=== PATIENT | female | born 1990 | race Caucasian/White ===

== ENCOUNTER 2022-05-12 02:28 | Day surgery (SDC) | payer OTHER, SELFPAY ==
[2022-05-05 08:35] VITALS: BMI 28.6
--- NOTE | 2022-05-05 08:39 | PC.NURSE ---
Report to the Outpatient Waiting Room, entrance under the green pavilion located off [facility], at time 7:45 on date 05/12/22. Planned Procedure Time: 9:45. Time changes happen often and if your time is changed the preop area will call you the afternoon before. - You and your visitor will be asked to self-screen and do not enter if you have any COVID symptoms. - Only one visitor is requested with a max of two and NO children visitors are allowed at this time. - The patient visitor may be requested to leave or wait in car when not with patient due to distancing restrictions. - A mask is optional within the hospital at this time. Patients may have clear liquids (water, carbonated beverages, clear teas, apple juice) until 3 hours prior to surgery (6:45) with a maximum of 20 ounces. - No food from midnight until time of surgery Take the following medications with a SIP of water the morning of surgery: N/A DO NOT STOP ANY OF YOUR OTHER PRESCRIPTION MEDICATIONS PRIOR TO SURGERY EXCEPT THE FOLLOWING Medications to discontinue per physician: N/A Date to take last dose: N/A Please no make-up, nail montenegrin, hairspray, perfume, deodorant, or body powder the day of surgery. No jewelry (including any body piercings) or valuables the day of surgery, leave them at home. Please take a shower or bath the night before, or the morning of, surgery with an antibacterial soap. Wear comfortable, loose fitting clothing. - Jewelry must be removed prior to entering the operating room. Rings and piercings that are not removed may be cut off. - The hospital will not accept responsibility for valuables. - Please leave all valuables, including medications, at home the day of surgery. If you are going home after surgery, a licensed medical driver must drive you home. - NO public transportation without another adult if you receive anesthesia. - We recommend that an adult stay with you for 24 hours following discharge. - We also recommend that you do not drive, make important decision, drink alcoholic beverages, or take any drugs that were not prescribed by your health care provider for at least 24 hours after your discharge time. Follow any additional instructions given to you from your surgeon. If you or anyone in your household have experienced Covid symptoms in the past week, please notify your surgeon or the nurse liaison at the phone number below for possible testing. Telephone instructions given to MARYLOU - BROOKLYNN HUNT and asked if any additional questions and then verbalized understanding. Patient advised to call surgeon office or pre surgery nurse liaison [phone] if any additional questions.
--- NOTE | 2022-05-11 16:10 | PM.IMHP ---
H&P: HPI History of Present Illness Date/Time: 05/11/22 16:10 Chief Complaint: heavy bleeding Narrative: so a 31-year-old female admitted for hysteroscopy dilatation curettage secondary to excessive heavy bleeding vaginally. She had bleeding for about 6 weeks has felt weak and uncomfortable. She had negative cultures and has an ultrasound that shows an endometrium that is heterogenous. Risks and benefits reviewed including not exclusive of , aspiration pneumonia, bleeding, transfusion, perforation injury to bowel, bladder, ureters, or other internal organs with need for open laparotomy. She received the ACOG handouts entitled hysteroscopy as well as dilatation curettage respectively. She had all questions answered. She asked to proceed [facility] Social History Social History Smoking status: Current every day smoker Tobacco type: e-cigarettes/vaping Alcohol intake: current Drinks per week: 2 Substance use: never Substance use type: does not use Living arrangements: with friend(s) Additional living arrangements comments: BOYFRIEND Spiritual care concerns: No Meds Home Medications and Allergies Home Medications Medication Instructions Recorded Confirmed Type levonorgestrel 120 mcg-e.estradiol 1 patch transdermal WEEKLY 05/05/22 05/05/22 History 30 mcg/24 hr weekly transderm patch (Twirla) Allergies Allergy/AdvReac Type Severity Reaction Status Date / Time No Known Allergies Allergy Unverified 05/05/22 08:34 Exam Const: General: cooperative, healthy appearing and comfortable Nutritional Appearance: average body habitus Orientation/consciousness: oriented to person, oriented to place and oriented to time HENMT: Head: normal to inspection Resp: Effort & Inspection: normal respiratory effort Cardio: Rate: regular rate Rhythm: regular rhythm Heart sounds: S1 normal heart sound present and S2 normal heart sound present GI: Inspection: normal to inspection Auscultation: normal bowel sounds : Speculum Exam - Vagina: normal appearance of the vagina and vaginal bleeding Speculum Exam - Cervix: normal appearance of the cervix Bimanual exam- vagina & uterus: enlarged Bimanual Exam- Adnexa, other: normal adnexae Assessment and Plan Assessment and plan (1) Excessive bleeding: Code(s): R58 - Hemorrhage, not elsewhere classified Status: Acute Plan hysteroscopy/dilatation curettage
--- NOTE | 2022-05-12 07:13 | WPDHPUPDATE1 ---
History and Physical Update Update Date/Time: 05/12/22 07:13 History and Physical has been reviewed, including an updated exam of the patient. There are NO changes in the patient's condition. Risks, benefits, and alternatives have been discussed and questions answered. Patient agrees to proceed with procedure.
--- NOTE | 2022-05-12 07:49 | WPDANESEPPF ---
Anes - Initial Pre Proc Eval Procedure: Operation Date: 05/12/22 09:45 Proposed Procedures p Hysteroscopy Dilation and Curettage - Sudhakar Rubi MD Date/Time: 05/12/22 07:49 Surgeon: Sudhakar Rubi MD Pre Op Diagnosis: Heavy bleeding Patient Data Age: 31 Gender: F Height: 1.7 m Weight: 83 kg Allergies Allergy/AdvReac Type Severity Reaction Status Date / Time No Known Allergies Allergy Unverified 05/12/22 08:25 Home Medications Medication Instructions Recorded Confirmed Type levonorgestrel 120 mcg-e.estradiol 1 patch transdermal WEEKLY 05/05/22 05/05/22 History 30 mcg/24 hr weekly transderm patch (Twirla) hydrocodone 5 mg-acetaminophen 325 1 tablet PO Q4H PRN pain #20 tabs 05/12/22 Rx mg tablet Patient hx anesthesia problems: none Family hx anesthesia problems: none Results Review: All pre-operative results and documents have been reviewed as part of the pre-operative evaluation. [facility] Past Medical History Medical History (Updated 05/12/22 @ 07:49 by Munir Kim DO) Anxiety Social History Social History Smoking status: Current every day smoker Tobacco type: e-cigarettes/vaping Alcohol intake: current Drinks per week: 2 Substance use: never Substance use type: does not use Living arrangements: with friend(s) Additional living arrangements comments: BOYFRIEND Spiritual care concerns: No Anes - Eval Final PreProcedure Day of Procedure 05/12/22 07:49 Patient weight: overweight Heart: regular rate and rhythm Lungs: clear to auscultation Airway: Mallampati scale class II Neurological: alert and oriented Last oral intake: >/= 8 hours ASA classification: II Emergent: no Anesthetic plan: proceed Anesthesia type and monitoring: general GIVS and standard monitoring Results Review: All pre-operative results and documents have been reviewed as part of the pre-operative evaluation. Informed Consent: The patient's anesthetic plan and its attendant risks and benefits were discussed with the patient/family/POA. Questions were solicited and answers provided to the satisfaction of the patient/family/POA.
[2022-05-12 08:08] VITALS: BP 123/74; PULSE 86; RESP 16; TEMP 36.8; O2SAT 100
[2022-05-12] MEDS: ACETAMINOPHEN 500 MG TABLET 1000 MG PO (08:27)
[2022-05-12] MEDS: LACTATED RINGERS 1,000 ML 30 ML IV CONT (08:35)
[2022-05-12] MEDS: LIDOCAINE HCL 1% LOCAL INJ 20 ML VIAL 10 ML INFILTRATE (09:18)
--- NOTE | 2022-05-12 09:29 | W.PM.PROC2 ---
Procedure Note - Detailed Date of Procedure 05/12/22 Pre-op Diagnosis Heavy bleeding Post-op Diagnosis Same Procedure Performed Hysteroscopy / dilatation curettage Surgeon Sudhakar Rubi MD Anesthesia MAC and Local Indications since 31-year-old female with excessive heavy bleeding refractory to medical therapy Findings uterus sounded to 8cm. Thick irregular endometrial tissue was seen Description of Procedure patient was prepped draped in normal sterile fashion placed in the dorsal lithotomy position. Under excellent IV sedation weighted speculum placed in posterior fornix vagina. Anterior lip of the cervix grasped with single-tooth tenaculum. 2.5cc 1% anesthesia placed at 2, 4, 8, 10:00 a.m. respectively the cervix. Uterus sounded 8cm. Serial dilatation with fragmented dilators performed followed by passage of the reviewed a hysteroscope. Normal saline was used as visualizing medium. Thick irregular endometrial tissue was seen but no evidence of abnormalities like polyps or lesions. The uterus was then scraped over 360? with the Aleksandra instrument. The instruments removed and accounted for blood loss estimated at5cc. All sponge, needle, instrument counts were correct. There were no immediate complications Estimated Blood Loss 5 Drains No Packing No Pathology Yes Complications No immediate complications Condition Stable Disposition PACU
[2022-05-12 09:32] VITALS: BP 110/66; PULSE 84; RESP 15; O2SAT 96
[2022-05-12] MEDS: oxyCODONE HCL (*CRX) 5 MG TAB IR PO (09:55)
[2022-05-12 10:00] VITALS: BP 105/68; PULSE 72; RESP 16; O2SAT 98
[2022-05-12 10:13] VITALS: BP 105/64; PULSE 77; RESP 16
== END 2022-05-12 10:21 | disposition home or self-care (01) ==
PROVIDERS: Visit Provider Obstetrics & Gynecology
PROC: 0U5B8ZZ Destruction of Endometrium, Via Natural or Artificial Opening Endoscopic (ICD-10-PCS; CPT 58563; principal; 2022-05-12 09:45)
DX: N93.9 Abnormal uterine and vaginal bleeding, unspecified (principal); F17.290 Nicotine dependence, other tobacco product, uncomplicated
CPT/HCPCS: 58558; 88305; A9270; J1100; J2250; J2405; J2704; J3010; J7120

== ENCOUNTER 2022-09-27 07:21 | Day surgery (SDC) | payer OTHER, SELFPAY ==
[2022-09-19 12:49] VITALS: BMI 29.3
[2022-09-19 13:07] VITALS: BMI 29.3
--- NOTE | 2022-09-26 06:27 | P.HP_ITS ---
History of Present Illness History of Present Illness Consent: Risks, benefits, and alternatives have been discussed and questions answered. Patient agrees to proceed with procedure. Chief complaint: Left Neck Mass Narrative: Ginna Aldana is a 32 year old female with a left neck mass Review of Systems Constitutional: Constitutional: Reports as per [facility] Past Medical History Medical History Anxiety Family History Family History Mother Throat cancer Tongue cancer Father Carcinoma of colon Factor V Leiden Hypertension Sibling Factor V Leiden Asthma Grandparent Depression Hypertension Factor V Leiden Social History Social History Smoking packs per day: 0.5 Smoking cigarettes per day: 10.0 Years smoked: 4 Smoking pack-years: 2.00 Smoking status: Current every day smoker Tobacco type: e-cigarettes/vaping Second hand tobacco smoke exposure: Yes Alcohol intake: current Drinks per week: 3 Substance use: never Substance use type: does not use Living arrangements: with family Additional living arrangements comments: BOYFRIEND Spiritual care concerns: No Meds Home Medications and Allergies Home Medications Medication Instructions Recorded Confirmed Type etonogestrel 68 mg subdermal 1 implant subdermal ONCE 09/05/22 09/19/22 History implant (Nexplanon) lisdexamfetamine 10 mg capsule 10 mg PO DAILY 09/05/22 09/19/22 History (Vyvanse) Allergies Allergy/AdvReac Type Severity Reaction Status Date / Time No Known Allergies Allergy Verified 09/19/22 12:48 Exam Narrative: left neck mass
--- NOTE | 2022-09-26 06:37 | PM.HPGS ---
History of Present Illness History of Present Illness Consent: Risks, benefits, and alternatives have been discussed and questions answered. Patient agrees to proceed with procedure. Chief complaint: Left Neck Mass Narrative: Ginna Aldana is a 32 year old female with the left neck mass Review of Systems Review of Systems: All systems reviewed & are unremarkable except as noted in HPI and below PMFSH Past Medical History Medical History Anxiety Family History Family History Mother Throat cancer Tongue cancer Father Carcinoma of colon Factor V Leiden Hypertension Sibling Factor V Leiden Asthma Grandparent Depression Hypertension Factor V Leiden Social History Social History Smoking packs per day: 0.5 Smoking cigarettes per day: 10.0 Years smoked: 4 Smoking pack-years: 2.00 Smoking status: Current every day smoker Tobacco type: e-cigarettes/vaping Second hand tobacco smoke exposure: Yes Alcohol intake: current Drinks per week: 3 Substance use: never Substance use type: does not use Living arrangements: with family Additional living arrangements comments: BOYFRIEND Spiritual care concerns: No Meds Home Medications and Allergies Home Medications Medication Instructions Recorded Confirmed Type etonogestrel 68 mg subdermal 1 implant subdermal ONCE 09/05/22 09/19/22 History implant (Nexplanon) lisdexamfetamine 10 mg capsule 10 mg PO DAILY 09/05/22 09/19/22 History (Vyvanse) Allergies Allergy/AdvReac Type Severity Reaction Status Date / Time No Known Allergies Allergy Verified 09/19/22 12:48 Exam Narrative: 11 12 mm solid mass
--- NOTE | 2022-09-26 10:37 | P.PNAN_ITS ---
Anes - Initial Pre Proc Eval Procedure: Operation Date: 09/27/22 09:00 Proposed Procedures p Excision Left Neck Mass - Alban Petersen MD Date/Time: 09/26/22 10:37 Surgeon: Alban Petersen MD Pre Op Diagnosis: Left Neck Mass Patient Data Age: 32 Gender: F Height: 1.7 m Weight: 85 kg Allergies Allergy/AdvReac Type Severity Reaction Status Date / Time No Known Allergies Allergy Verified 09/27/22 07:58 Home Medications Medication Instructions Recorded Confirmed Type etonogestrel 68 mg subdermal 1 implant subdermal ONCE 09/05/22 09/27/22 History implant (Nexplanon) lisdexamfetamine 10 mg capsule 10 mg PO DAILY 09/05/22 09/27/22 History (Vyvanse) Patient hx anesthesia problems: none Family hx anesthesia problems: none Results Review: All pre-operative results and documents have been reviewed as part of the pre- operative evaluation. [facility] Past Medical History Medical History Anxiety Family History Family History Mother Throat cancer Tongue cancer Father Carcinoma of colon Factor V Leiden Hypertension Sibling Factor V Leiden Asthma Grandparent Depression Hypertension Factor V Leiden Social History Social History Smoking packs per day: 0.5 Smoking cigarettes per day: 10.0 Years smoked: 4 Smoking pack-years: 2.00 Smoking status: Current every day smoker Tobacco type: e-cigarettes/vaping Second hand tobacco smoke exposure: Yes Alcohol intake: current Drinks per week: 3 Substance use: never Substance use type: does not use Living arrangements: with family Additional living arrangements comments: BOYFRIEND Spiritual care concerns: No Anes - Eval Final PreProcedure Day of Procedure 09/26/22 10:37 Patient weight: overweight Heart: regular rate and rhythm Lungs: clear to auscultation Airway: Mallampati scale class II Neurological: alert and oriented Last oral intake: >/= 8 hours ASA classification: II Emergent: no Anesthetic plan: proceed Anesthesia type and monitoring: general GIVS and standard monitoring Other findings: Patient attempted procedure under local, but asked for sedation intra op Results Review: All pre-operative results and documents have been reviewed as part of the pre- operative evaluation. Informed Consent: The patient's anesthetic plan and its attendant risks and benefits were discussed with the patient/family/POA. Questions were solicited and answers provided to the satisfaction of the patient/family/POA.
[2022-09-27 08:00] VITALS: BP 108/89; PULSE 79; RESP 16; TEMP 36.9; O2SAT 100; BMI 29.3
[2022-09-27] MEDS: LACTATED RINGERS 1,000 ML 30 ML IV CONT ×2 (08:11→10:10)
--- NOTE | 2022-09-27 08:57 | PM.HPGS ---
History of Present Illness History of Present Illness Consent: Risks, benefits, and alternatives have been discussed and questions answered. Patient agrees to proceed with procedure. Chief complaint: Left Neck Mass Narrative: Ginna Aldana is a 32 year old female with left neck mass. Review of Systems Review of Systems: All systems reviewed & are unremarkable except as noted in HPI and below PMFSH Past Medical History Medical History Anxiety Family History Family History Mother Throat cancer Tongue cancer Father Carcinoma of colon Factor V Leiden Hypertension Sibling Factor V Leiden Asthma Grandparent Depression Hypertension Factor V Leiden Social History Social History Smoking packs per day: 0.5 Smoking cigarettes per day: 10.0 Years smoked: 4 Smoking pack-years: 2.00 Smoking status: Current every day smoker Tobacco type: e-cigarettes/vaping Second hand tobacco smoke exposure: Yes Alcohol intake: current Drinks per week: 3 Substance use: never Substance use type: does not use Living arrangements: with family Additional living arrangements comments: BOYFRIEND Spiritual care concerns: No Meds Home Medications and Allergies Home Medications Medication Instructions Recorded Confirmed Type etonogestrel 68 mg subdermal 1 implant subdermal ONCE 09/05/22 09/27/22 History implant (Nexplanon) lisdexamfetamine 10 mg capsule 10 mg PO DAILY 09/05/22 09/27/22 History (Vyvanse) Allergies Allergy/AdvReac Type Severity Reaction Status Date / Time No Known Allergies Allergy Verified 09/27/22 07:58 Vital Signs Vital Signs - 24 hr 09/27/22 08:00 Temperature 36.9 C Pulse Rate 79 Respiratory Rate 16 Blood Pressure 108/89 Pulse Oximetry 100 Oxygen Delivery Room Air Exam Narrative: 11-12mm left neck mass Assessment and Plan Assessment and plan (1) Neck mass: Code(s): R22.1 - Localized swelling, mass and lump, neck Status: Acute Plan excision left neck mass
[2022-09-27 09:15] VITALS: BP 114/67; PULSE 75; RESP 21; O2SAT 100
[2022-09-27 09:20] VITALS: BP 108/60; PULSE 83; RESP 23; O2SAT 100
[2022-09-27 09:25] VITALS: BP 102/59; PULSE 80; RESP 19; O2SAT 99
[2022-09-27] MEDS: LIDO 1%/EPINEPHRINE 1:100,000 20 ML VIAL 10 ML INFILTRATE (09:40)
--- NOTE | 2022-09-27 09:47 | W.PM.PROC2 ---
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
[2022-09-27 09:51] VITALS: BP 104/77; PULSE 85; RESP 18; O2SAT 100
[2022-09-27 10:10] VITALS: BP 108/79; PULSE 70; RESP 18; O2SAT 100
--- NOTE | 2022-09-27 13:25 | WPDANESPN ---
Anes - Prog Note Post-Op Date/Time: 09/27/22 13:25 Cardiovascular status: normal Respiratory status: normal Airway patency: baseline Mental status: baseline Post-Op hydration status: normal Vital Signs: Last Vital Signs Temp 36.9 C 09/27/22 08:00 Pulse 70 09/27/22 10:10 Resp 18 09/27/22 10:10 BP 108/79 09/27/22 10:10 Pulse Ox 100 09/27/22 10:10 O2 Del Method Room Air 09/27/22 10:10 Pain Score (VAS): 2 Post-procedural complaints: none Patient Feedback: Patient satisfied with anesthetic care. Other Findings: Patient vital signs back to baseline. Patient denies nausea and vomiting. Patient's pain under control. Patient OK for discharge.
== END 2022-09-27 10:17 | disposition home or self-care (01) ==
PROVIDERS: PCP Internal Medicine; Visit Provider Otolaryngology
PROC: (CPT 21555; principal; 2022-09-27 09:00)
DX: R22.1 Localized swelling, mass and lump, neck (principal)
CPT/HCPCS: 21555

== ENCOUNTER 2022-09-27 09:00 | Outpatient (NON) | payer OTHER, SELFPAY | END 2022-09-27 09:01 | disposition home or self-care (01) | PROVIDERS: PCP Internal Medicine; Visit Provider Otolaryngology | DX: C07 Malignant neoplasm of parotid gland (principal) | CPT/HCPCS: 88304; 88313 ==